=== PATIENT | female | born 1990 | race Caucasian/White ===

== ENCOUNTER 2019-09-23 07:58 | Emergency (ER) | payer OTHER ==
--- NOTE | 2019-09-23 08:52 | ED Physician Documentation ---
PD HPI HEADACHE - Stated complaint Stated Complaint: PRICE/VOMITING - Chief complaint Chief Complaint: General - History obtained from History obtained from: Patient - History of Present Illness Timing - onset: Last night Timing - onset during: Rest Timing - duration: Hours Timing - details: Gradual onset, Still present Worst headache ever?: No: Worst headache ever? (similar to other migraines.) Location: Front, Right Quality: Throbbing, Aching Associated symptoms: Nausea, Vomiting. No: Fever, Stiff neck, Weakness, Numbness Improved by: No: Meds (took tylenol without improvement) Worsened by: Light, Noise Contributing factors: No: Recent illness Similar symptoms before: Diagnosis (migraines about every 2 months. Usually t akes Excedrin migraine or Ibuprofen, but is now and had been told only can use Tylenol. Has not been Rx migraine specific meds such as Imitrex in the past.) Review of Systems Constitutional: denies: Fever, Chills, Myalgias Nose: denies: Rhinorrhea / runny nose, Congestion Throat: denies: Sore throat Respiratory: denies: Cough GI: reports: Nausea, Vomiting. denies: Abdominal Pain, Diarrhea Skin: denies: Rash, Lesions Neurologic: reports: Headache. denies: Focal weakness, Numbness, Near syncope, Confused, Altered mental status, Head injury PD PAST MEDICAL HISTORY - Past Medical History Cardiovascular: None Respiratory: None Neuro: Migraines - Present Medications Home Medications: Ambulatory Orders Medication Instructions Recorded Confirmed Ibuprofen [Motrin] 600 mg PO TID PRN #15 tab 09/23/19 Ondansetron Odt [Zofran] 4 mg TL Q6H PRN #15 tablet 09/23/19 - Allergies Allergies/Adverse Reactions: Allergies Allergy/AdvReac Type Severity Reaction Status Date / Time No Known Drug Allergies Allergy Verified 09/23/19 08:31 PD ED PE NORMAL - Vitals Vital signs reviewed: Yes - General General: Alert and oriented X 3, Well developed/nourished - HEENT HEENT: PERRL, EOMI, Pharynx benign - Neck Neck: Supple, no meningeal sign, No adenopathy - Cardiac Cardiac: RRR, No murmur - Respiratory Respiratory: Clear bilaterally - Derm Derm: Normal color, Warm and dry - Neuro Neuro: Alert and oriented X 3, No motor deficit, No sensory deficit, Normal speech Eye Opening: Spontaneous Motor: Obeys Commands Verbal: Oriented GCS Score: 15 Results - Vitals Vitals: Vital Signs - 24 hr 09/23/19 09/23/19 09/23/19 08:24 11:01 11:26 Temperature 36.2 C L 36.9 C Heart Rate 70 67 70 Respiratory 16 12 14 Rate Blood Pressure 111/62 101/59 L 110/64 O2 Saturation 99 96 96 Oxygen O2 Source Room air PD MEDICAL DECISION MAKING - ED course Complexity details: re-evaluated patient (feeling much improved with Toradol and Zofran. ), considered differential, d/w patient Departure - Departure Disposition: Home, Self Care Clinical Impression: Migraine Qualifiers: Migraine type: without aura Status migrainosus presence: without status migrainosus Intractability: not intractable Qualified Code(s): G43.009 - Migraine without aura, not intractable, without status migrainosus Condition: Stable Record reviewed to determine appropriate education?: Yes Instructions: ED Headache Migraine Follow-Up: SANAZ RODRIGUEZ III, MD [Primary Care Provider] - Prescriptions: Ibuprofen [Motrin] 600 mg PO TID PRN #15 tab PRN Reason: Pain Ondansetron Odt [Zofran] 4 mg TL Q6H PRN #15 tablet PRN Reason: Nausea / Vomiting Comments: Hydrate well today. Ondansetron if needed for nausea every 6-8 hours. You can use ibuprofen during up to about 30 weeks gestational age. Use it periodically if needed for headache. You can use Tylenol throughout all of . Discharge Date/Time: 09/23/19 11:27
[2019-09-23] MEDS ORDERED: KETOROLAC 60 MG/2 ML VIAL IM STA (09:15)
[2019-09-23] MEDS ORDERED: ONDANSETRON ODT 4 MG TABLET TL STA (09:15)
[2019-09-23 11:27] VITALS: BP 110/64
== END 2019-09-23 11:27 | disposition home or self-care (01) ==
LOC: ED 07:58
DX: G43.009 Migraine without aura, not intractable, without status migrainosus (principal)
CPT/HCPCS: 99283; 99284; Q0162

== ENCOUNTER 2019-11-30 08:33 | Outpatient (CLI) | payer OTHER ==
[2019-11-30] MEDS ORDERED: LACTATED RINGERS 1,000 ML IV ONE ×2 (10:27→10:39)
[2019-11-30] MEDS ORDERED: SODIUM CHLORIDE FLUSH 0.9% 10 ML SYRINGE ONE (10:27)
[2019-11-30 13:08] LABS: BILIRUBIN,URINE NEGATIVE (NEGATIVE); GLUCOSE, URINE (UA) NEGATIVE (NEGATIVE); KETONES,URINE (UA) NEGATIVE (NEGATIVE); LEUKOCYTE ESTERASE, URINE NEGATIVE (NEGATIVE); NITRITE,URINE NEGATIVE (NEGATIVE); OCCULT BLOOD,URINE NEGATIVE (NEGATIVE); PROTEIN,URINE NEGATIVE (NEGATIVE); UROBILINOGEN,URINE 0.2 (NORMAL) E.U./dL (NORMAL)
[2019-11-30 13:09] LABS: CLARITY,URINE CLEAR (CLEAR)
--- NOTE | 2019-11-30 13:24 | Ultrasound Report ---
Reason: ctx Procedure Date: 11/30/2019 Accession Number: [id number] / [id number] Procedure: US - OB Transvaginal CPT Code: Final Report FULL RESULT: EXAM: LIMITED OBSTETRICAL ULTRASOUND EXAM DATE: 11/30/2019 12:00 PM. CLINICAL HISTORY: ctx. COMPARISON: No prior studies available for comparison.. TECHNIQUE: Real-time sonographic evaluation of the fetus performed by the crossing guard. Multiple medical field representative static images were saved for review. DATING: Established EGA 26 weeks, 6 days with MARCIAL 03/01/2020. GENERAL EVALUATION [place] . Cardiac activity: 121 bpm. ANATOMY Not evaluated MATERNAL STRUCTURES The cervix is long and closed measuring 4.4 cm in length. IMPRESSION: 1. [place] live intrauterine with heart rate of 121 bpm. 2. Cervix is long and closed measuring 4.4 cm in length. 3. presentation and anatomy was not evaluated by the cardiology technologist. HAYLEEA
[2019-11-30 13:25] LABS: BACTERIA,URINE None Seen /HPF (None Seen); MUCUS,URINE Few Strands; RBC,URINE None Seen /HPF (0-5); SQUAMOUS EPITHELIAL CELL,UR MOD Squamous (<= Few)
[2019-11-30 13:25] LABS: CANDIDA GROUP DNA NEGATIVE (NEGATIVE); CANDIDA KRUSEI DNA NEGATIVE (NEGATIVE); TRICHOMONAS VAGINALIS DNA NEGATIVE (NEGATIVE)
[2019-11-30 14:20] VITALS: BP 120/74
[2019-11-30 21:41] LABS: TRICHOMONAS VAGINALIS DNA NEGATIVE (NEGATIVE)
--- NOTE | 2019-12-02 17:22 | PROVIDER PROGRESS NOTE ---
- HPI Chief Complaint: Other ( @ 26+5 weeks gestation presents to triage c/o regular ctx 4-6 minutes apart x2 days and loss of mucous plug last week. States delay in seeking care due to childcare and issues. Denies LOF or VB, notes movement and states it is increased, with episodes of "sharp" movement she states is not what she is used to.) Current : Current EDU 03/01/20 Gestation 26 Weeks and 6 Days 5 Para 4 Vital Signs Temperature 97.7 F 11/30/19 08:52 Heart Rate 78 11/30/19 08:52 Respiratory Rate 18 11/30/19 08:52 Blood Pressure 117/57 L 11/30/19 08:52 O2 Saturation 100 11/30/19 08:52 Temperature 98.1 F 11/30/19 14:19 Heart Rate 75 11/30/19 14:19 Respiratory Rate 18 11/30/19 14:19 Blood Pressure 120/74 11/30/19 14:19 O2 Saturation 99 11/30/19 14:19 - Exam GEN: NAD CV: RR RESP: normal effort ABD: gravid, S&NT EFM - Procedures OB Procedure Performed: NST Diagnosis/Indication for NST: labor NST Procedure: 135 mod cathi 15x15 accels no decels TOCO: intermittent Cat I tracing Service Date of procedure: 11/30/19 Procedure Details: @ 26+5 wga with ctx Cervical exam: 1 external, closed intermally, long, high per RN exam Cat I tracing FFN negative TVCL 4.4 cm Neg vaginitis panel GBS pending Had been francisco javier on monitor with reassuring cervical exam, US, FFN Given IV fluif bolus and contractions diminished. Findings: Reassuring cervical exam, cervical length, FFN UA and vaginitis panel negative Contractions diminished with fluid bolus - Plan Plan: Discharge to home with warning signs reviewed GBS pending
== END 2019-11-30 14:15 | disposition home or self-care (01) ==
LOC: WFO 08:33 → FBP 08:41 → WFO 14:15
PROVIDERS: ATTEND Obstetrics & Gynecology
DX: O47.02 False labor before 37 completed weeks of gestation, second trimester (principal); Z3A.26 26 weeks gestation of pregnancy
CPT/HCPCS: 76817; 81001; 82731; 87077; 87081; 87481; 87491; 87591; 87661; 87801; 99214; J7120; 87086

== ENCOUNTER 2019-12-01 08:00 | Outpatient (CLI) | payer OTHER ==
[2019-12-01 15:03] LABS: BILIRUBIN,URINE NEGATIVE (NEGATIVE); GLUCOSE, URINE (UA) NEGATIVE (NEGATIVE); KETONES,URINE (UA) NEGATIVE (NEGATIVE); LEUKOCYTE ESTERASE, URINE NEGATIVE (NEGATIVE); NITRITE,URINE NEGATIVE (NEGATIVE); OCCULT BLOOD,URINE NEGATIVE (NEGATIVE); PROTEIN,URINE NEGATIVE (NEGATIVE); UROBILINOGEN,URINE 0.2 (NORMAL) E.U./dL (NORMAL)
[2019-12-01 15:24] LABS: CLARITY,URINE CLOUDY (CLEAR); RBC,URINE None Seen /HPF (0-5); SQUAMOUS EPITHELIAL CELL,UR NONE SEEN (<= Few)
[2019-12-01 15:25] LABS: AMORPHOUS SEDIMENT,UR Moderate /LPF; BACTERIA,URINE None Seen /HPF (None Seen)
== END 2019-12-01 23:59 | disposition home or self-care (01) ==
LOC: LAB.R 08:00
PROVIDERS: ATTEND Nurse Practitioner Obstetrics & Gynecology
DX: Z36.89 Encounter for other specified antenatal screening (principal)
CPT/HCPCS: 81001; 87086

== ENCOUNTER 2019-12-09 09:17 | Outpatient (CLI) | payer OTHER ==
[2019-12-09 11:16] LABS: BASOPHILS % (AUTO) 0.4 %; EOSINOPHILS # (AUTO) 0.1 10^3/uL (0.0-0.7); EOSINOPHILS % (AUTO) 1.3 %; LYMPHOCYTES # (AUTO) 1.5 10^3/uL (1.5-3.5); LYMPHOCYTES % (AUTO) 13.5 %; MEAN CORPUSCULAR HEMOGLOBIN 28.7 pg (27.0-31.0); MEAN CORPUSCULAR HGB CONC 31.6 g/dL (32.0-36.0); MEAN CORPUSCULAR VOLUME 90.9 fL (81.0-99.0); MEAN PLATELET VOLUME 8.5 fL (7.9-10.8); MONOCYTES # (AUTO) 0.5 10^3/uL (0.0-1.0); MONOCYTES % (AUTO) 4.4 %; NEUTROPHILS # (AUTO) 8.6 10^3/uL (1.5-6.6); NEUTROPHILS % (AUTO) 79.7 %; PLT - PLATELET COUNT 367 10^3/uL (130-450); RED BLOOD COUNT 3.83 10^6/uL (4.20-5.40); RED CELL DISTRIBUTION WIDTH 12.7 % (12.0-15.0); WHITE BLOOD COUNT 10.8 x10^3/uL (4.8-10.8)
[2019-12-10 07:53] LABS: HEPATITIS B SURFACE ANTIGEN NON-REACTIVE (NON-REACTIVE)
[2019-12-10 12:07] LABS: HEPATITIS C ANTIBODY NON-REACTIVE (NON-REACTIVE)
[2019-12-10 13:24] LABS: HIV AG/AB 4TH GEN NON-REACTIVE (NON-REACTIVE)
== END 2019-12-09 09:18 | disposition home or self-care (01) ==
LOC: LAB 09:17
PROVIDERS: ATTEND Nurse Practitioner Obstetrics & Gynecology
DX: Z36.89 Encounter for other specified antenatal screening (principal)
CPT/HCPCS: 36415; 81599; 82950; 85025; 85027; 86762; 86803; 86850; 86900; 86901; 87340; 87389

== ENCOUNTER 2019-12-14 11:30 | Outpatient (CLI) | payer OTHER ==
--- NOTE | 2019-12-16 10:41 | Ultrasound Report ---
Reason: SCREENING Procedure Date: 12/14/2019 Accession Number: [id number] / [id number] Procedure: US - OB Detailed Eval CPT Code: Final Report FULL RESULT: EXAM: COMPLETE OBSTETRICAL ULTRASOUND EXAM DATE: 12/14/2019 11:42 AM. CLINICAL HISTORY: anatomic survey. LMP: 05/28/2019 COMPARISON: Limited OB TRANSVAGINAL 11/30/2019 11:40 AM. TECHNIQUE: Real-time sonographic evaluation of the fetus performed by the folding machine operator. Multiple member service representative static images were saved for review. Additional transvaginal imaging to more accurately evaluate cervical length/placental position/etc. DATING: Established EGA 28 weeks 6 days with MARCIAL 03/01/2020 based on provider stated. EGA 29 weeks 1 day with MARCIAL 02/28/2020 based on the current ultrasound. GENERAL EVALUATION [place] . Cardiac activity: 157 bpm. movement: Visualized. Presentation: Cephalic. Placenta: Posterior and right position. No evidence for previa. Umbilical cord: 3 vessel cord. Central placental cord origin. Amniotic fluid: Normal. KATHRINE 13.0 cm MVP 4.9 cm. BIOMETRY Bi-Parietal Diameter (BPD): 7.2 cm, 29 weeks 0 days Head Circumference (HC): 26.9 cm, 29 weeks 3 days Abdominal Circumference (AC): 25.0 cm, 29 weeks 1 day Femur Length (FL): 5.5 cm, 29 weeks 0 days Estimated Weight: 1338 g, 46th percentile for 28 weeks 6 days. ANATOMY The intracranial structures, profile, face/nose/lips, spine, 4 chamber heart and left ventricular outflow tract, stomach, abdominal wall and cord insertion, diaphragm, kidneys, bladder, and extremities were visualized and demonstrate no abnormality. Right ventricular outflow tract not well seen. MATERNAL STRUCTURES Uterus: Unremarkable. Cervix: Long and closed. Transabdominal length 4.8 cm. Right ovary/adnexa: Unremarkable. Left ovary/adnexa: Unremarkable. Free fluid: None. IMPRESSION: 1. [place] live intrauterine with gestational age 28 weeks 6 days based on provider stated established MARCIAL. 2. Estimated weight is within expected limits for assigned dating. 3. No anatomic abnormalities are detected at this time. However, the right ventricular outflow tract is not well seen. Follow-up additional views could be obtained to reassess. MICHAEL
== END 2019-12-14 11:31 | disposition home or self-care (01) ==
LOC: DI 11:30
PROVIDERS: ATTEND Nurse Practitioner Obstetrics & Gynecology
DX: Z36.89 Encounter for other specified antenatal screening (principal)
CPT/HCPCS: 76811

== ENCOUNTER 2019-12-24 12:43 | Outpatient (CLI) | payer OTHER ==
--- NOTE | 2019-12-24 14:58 | Ultrasound Report ---
Reason: SCREENING Procedure Date: 12/24/2019 Accession Number: [id number] / [id number] Procedure: US - OB F/U or Repeat CPT Code: Final Report FULL RESULT: EXAM: FOLLOW-UP OBSTETRICAL ULTRASOUND. EXAM DATE: 12/24/2019 02:02 PM. CLINICAL HISTORY: Completion of anatomy scan. Right ventricle outflow tract. COMPARISON: OB DETAILED EVAL 12/14/2019 11:42 AM. TECHNIQUE: Real-time sonographic evaluation of the fetus performed by the fabric designer. Multiple policy services representative static images were saved for review. DATING: Established EGA 30 weeks 2 days with MARCIAL 03/01/2020 based on working due date. GENERAL EVALUATION [place] . Cardiac activity: 136 bpm. movement: Visualized. Presentation: Meng breech. Placenta: Posterior position. Amniotic fluid: Normal. KATHRINE 15.1 cm. MVP 4.9 cm. ANATOMY The right ventricular outflow tract is seen, visualization is somewhat limited but adequate with no abnormality detected as seen. IMPRESSION: 1. [place] live intrauterine with gestational age 30 weeks 2 days based on working due date. 2. Limited but adequate visualization of the right ventricular outflow tract with no abnormality detected. RADIA
== END 2019-12-24 12:44 | disposition home or self-care (01) ==
LOC: DI 12:43
PROVIDERS: ATTEND Nurse Practitioner Obstetrics & Gynecology
DX: Z36.89 Encounter for other specified antenatal screening (principal)
CPT/HCPCS: 76816

== ENCOUNTER 2019-12-29 07:26 | Outpatient (CLI) | payer OTHER | END 2019-12-29 07:27 | disposition home or self-care (01) | LOC: LAB 07:26 | PROVIDERS: ATTEND Nurse Practitioner Obstetrics & Gynecology | DX: O99.810 Abnormal glucose complicating pregnancy (principal); Z3A.00 Weeks of gestation of pregnancy not specified | CPT/HCPCS: 36415; 82951; 82952 ==

== ENCOUNTER 2020-02-22 08:00 | Outpatient (CLI) | payer OTHER ==
[2020-02-22 21:05] LABS: TRICHOMONAS VAGINALIS DNA NEGATIVE (NEGATIVE)
== END 2020-02-22 23:59 | disposition home or self-care (01) ==
LOC: LAB.R 08:00
PROVIDERS: ATTEND Advanced Practice Midwife
DX: Z34.90 Encounter for supervision of normal pregnancy, unspecified, unspecified trimester (principal)
CPT/HCPCS: 87491; 87591; 87661

== ENCOUNTER 2020-02-29 07:00 | Outpatient (CLI) | payer OTHER | END 2020-02-29 23:59 | disposition home or self-care (01) | LOC: LAB.R 07:00 | PROVIDERS: ATTEND Advanced Practice Midwife | DX: Z34.90 Encounter for supervision of normal pregnancy, unspecified, unspecified trimester (principal); Z36.89 Encounter for other specified antenatal screening | CPT/HCPCS: 87797 ==

== ENCOUNTER 2020-03-01 06:26 | Inpatient (IN) | payer OTHER ==
[2020-03-01] MEDS ORDERED: METHYLERGONOVINE 0.2 MG/ML VIAL IM PRN (06:48)
[2020-03-01] MEDS ORDERED: miSOPROStoL 200 MCG TABLET PR PRN (06:48)
[2020-03-01] MEDS ORDERED: fentaNYL 100 MCG/2 ML VIAL IVP PRN (06:48)
[2020-03-01] MEDS ORDERED: SODIUM CHLORIDE FLUSH 0.9% 10 ML SYRINGE IVP PRN (06:48)
[2020-03-01] MEDS ORDERED: CARBOPROST TROMETHAMINE 250 MCG/ML AMP IM PRN (06:48)
[2020-03-01] MEDS ORDERED: OXYTOCIN/SODIUM CHLORIDE 500 ML IV PRN (06:48)
[2020-03-01] MEDS ORDERED: miSOPROStoL 200 MCG TABLET PR SCH (06:48)
[2020-03-01] MEDS ORDERED: ONDANSETRON 4 MG/2 ML VIAL IVP PRN ×2 (06:48→18:18)
[2020-03-01] MEDS ORDERED: LACTATED RINGERS 1,000 ML IV SCH (07:00)
--- NOTE | 2020-03-01 07:03 | HISTORY & PHYSICAL EXAMINATION ---
Admit History - Visit Reason Visit Reason: Other (Pre-Induction Cervical Ripening) - : 5 Parity: 4 Premature: 0 Ectopic: 0 : 0 Care: positive: [facility] Complications This : positive: Gestational diabetes, Other (Inadequate care; GBS Positive) Smoking Status: Never smoker - Mother's Labs Mother's Blood Type: positive: O Mother's RH: positive: Positive GBS: positive: Group B Strep Positive Rubella Status: positive: Immune - Other Maternal History Other Maternal History: Family History: None listed Surgical History: None listed Social History: No contributing factors known Inadequate care G1: 2009 41wks G2: 2010 40.5wks G3: 2012 39.6wks G4: Current DATING: Initial U/S: @ 12.1wks c/w LMP dating. MARCIAL 03/01/20 FAS 12/14/2019 WNL with the exception of poor visualization of cardiac structures. Posterior placenta, no previa. KATHRINE WNL. Size c/w dating. Glucola: 163- failed. 3hour(unable to complete r/t nausea/vomiting), declined further testing TDAP- Given 12/01/2019 Meds/Allgy - Home Medications Home Medications: Ambulatory Orders Medication Instructions Recorded Confirmed Ibuprofen [Motrin] 600 mg PO TID PRN #15 tab 09/23/19 Ondansetron Odt [Zofran] 4 mg TL Q6H PRN #15 tablet 09/23/19 - Allergies Allergies/Adverse Reactions: Allergies Allergy/AdvReac Type Severity Reaction Status Date / Time No Known Drug Allergies Allergy Verified 09/23/19 08:31 Review of Systems - Constitutional Constitutional: denies: Fatigue, Fever, Chills, Weakness - Eyes Eyes: denies: Pain, Irritation, Blurred vision, Spots in vision - Ears, Nose & Throat Ears, Nose & Throat: denies: Hearing loss, Vertigo, Nasal pain, Nosebleeds, Nasal congestion, Postnasal drainage - Cardiovascular Cariovascular: denies: Irregular heart rate, Palpitations, Chest pain - Respiratory Respiratory: denies: Cough, Wheezing, SOB at rest, SOB with exertion - Gastrointestinal Gastrointestinal: reports: Nausea, Vomiting. denies: Abdominal pain, Constipation, Diarrhea - Genitourinary Genitourinary: denies: Dysuria, Frequency - Musculoskeletal Musculoskeletal: denies: Muscle pain, Back pain, Muscle aches - Integumentary Integumentary: denies: Rash, Pruritis - Neurological Neurological: denies: Headache, Dizziness, Numbness - Psychiatric Psychiatric: reports: Anxiety (baseline history of anx). denies: Depression - Endocrine Endocrine: denies: Polyuria, Polydypsia - Hematologic/Lymphatic Hematologic/Lymphatic: denies: Anemia, Bruising Physical - Abdominal Exam Contraction Frequency (min/apart): intermittent Contraction Intensity: positive: Mild to moderate Uterine Resting Tone: positive: Soft - Presentation Presentation: positive: Vertex - Vaginal Exam Membranes: positive: Membranes intact Dilation (in cm): 1.5 Effacement (%): 75 Station: positive: -2 Cervical Position: positive: Midposition - Speculum Exam Speculum Exam Performed: positive: No (Exam per office visit yesterday. Confirmed vertex with scotty's at bedside today.) Plan for Labor - Plan For Labor I expect patient to be DC'd or transferred within 96 hours.: Yes Plan for Labor: Ania is a 29yo who presents at 40.0 wks gestation for an elective induction. Her is complicated by inadequate care, attending only four visits. She is GBS positive per a swab in November She is assumed GDM due to failed 1hr GTT, and inability to complete 3hr GTT r/t nausea and vomiting. Assessment: Pre-Induction Cervical Ripening Gestational Diabetes- presumed FHTs per RN SVE: Almaraz score- 7 Plan: Admit to OBS status for Pre-Induction Cervical Ripening (until active labor, SROM/AROM, or pit admin) Cervical ripening with Misoprostol- when RN confirms Cat I strip Continuous Monitoring Ampicillin ordered for GBS prophylaxis Blood sugars fasting and 2h post prandial Type and Screen May eat/drink/activity to tolerance Anticipate
[2020-03-01 07:42] LABS: BASOPHILS % (AUTO) 0.4 %; EOSINOPHILS # (AUTO) 0.2 10^3/uL (0.0-0.7); HGB - HEMOGLOBIN 10.2 g/dL (12.0-16.0); LYMPHOCYTES # (AUTO) 2.2 10^3/uL (1.5-3.5); LYMPHOCYTES % (AUTO) 20.9 %; MEAN CORPUSCULAR HEMOGLOBIN 25.8 pg (27.0-31.0); MEAN CORPUSCULAR HGB CONC 31.3 g/dL (32.0-36.0); MEAN CORPUSCULAR VOLUME 82.3 fL (81.0-99.0); MEAN PLATELET VOLUME 8.9 fL (7.9-10.8); MONOCYTES # (AUTO) 0.7 10^3/uL (0.0-1.0); MONOCYTES % (AUTO) 7.1 %; NEUTROPHILS # (AUTO) 7.1 10^3/uL (1.5-6.6); NEUTROPHILS % (AUTO) 68.6 %; PLT - PLATELET COUNT 388 10^3/uL (130-450); RED BLOOD COUNT 3.96 10^6/uL (4.20-5.40); WHITE BLOOD COUNT 10.4 x10^3/uL (4.8-10.8)
[2020-03-01] MEDS ORDERED: miSOPROStoL 100 MCG TABLET BC SCH (08:00)
[2020-03-01] MEDS ORDERED: SODIUM CHLORIDE FLUSH 0.9% 10 ML SYRINGE IVP SCH (09:00)
[2020-03-01] MEDS ORDERED: AMPICILLIN 2 GM in SODIUM CHLORIDE 0.9% MINIBAG 100 ML IV SCH (12:00)
--- NOTE | 2020-03-01 12:40 | PROVIDER PROGRESS NOTE ---
Labor Progress Note - Uterine Monitoring Contraction Frequency (min/apart): Q 6 min Contraction Intensity: positive: Mild to moderate - Monitoring Monitor Mode: positive: External ultrasound Heart Rate Baseline: 135 Heart Rate Variability: positive: Moderate (6-25 bmp) Accelerations: positive: Present, 15x15 Decelerations: positive: None Strip Review: positive: Category I - Vaginal Exam Dilation (in cm): 1 Effacement (%): 70 Station: -2 - Labor Progress Note Labor Progress Note/Additional Text: Patient managed by RONEN Pop Rounded to introduce myself as back up OB MD provider Exam performed in clinic-not repeated at this assessment Has received one dose of misoprostol 50 mcg BC Patient doing well in early stages of cervical ripening Cat I tracing Defer to RONEN Pop for care plan
[2020-03-01] MEDS ORDERED: AMPICILLIN 1 GM in SODIUM CHLORIDE 0.9% MINIBAG 100 ML IV SCH (16:00)
[2020-03-01] MEDS ORDERED: MINERAL OIL LIGHT 10 ML MC ONE (17:37)
[2020-03-01] MEDS ORDERED: ROPIVACAINE 0.2% 200 MG/100 ML BAG EP ONE (17:50)
[2020-03-01] MEDS ORDERED: ROPIVACAINE 0.2% PF 20ML VIAL ONE (17:50)
[2020-03-01] MEDS ORDERED: NALBUPHINE 10 MG/ML AMP IVP PRN (18:18)
[2020-03-01] MEDS ORDERED: METOCLOPRAMIDE 10 MG/2 ML VIAL IVP PRN (18:18)
[2020-03-01] MEDS ORDERED: ePHEDrine 50 MG/ML VIAL IVP PRN (18:18)
[2020-03-01] MEDS ORDERED: ROPIVACAINE 0.2% 200 MG/100 ML BAG EP PRN (18:18)
[2020-03-01] MEDS ORDERED: diphenhydrAMINE INJ 50 MG/ML VIAL IVP PRN (18:18)
[2020-03-01] MEDS ORDERED: LACTATED RINGERS 500 ML IV ONE (18:18)
[2020-03-01] MEDS ORDERED: NALOXONE 0.4 MG/ML VIAL IVP PRN (18:18)
--- NOTE | 2020-03-01 18:18 | ANESTHESIA ---
Pre-Anesthesia VS, & Labs - Diagnosis term labor, IUP - Procedure Vaginal delivery Vital Signs: Temp Pulse Resp BP Pulse Ox 37.0 C 85 16 104/66 100 03/01/20 06:52 03/01/20 06:52 03/01/20 06:52 03/01/20 06:52 03/01/20 06:52 Height 5 ft 4 in Weight (kg) 90.265 kg Body Mass Index 29.2 - NPO Last Fluid Intake: clears t/o day Last Food Intake: lunch - Is Patient ?: Yes - Lab Results Current Lab Results: Laboratory Tests 03/01/20 13:57: POC Whole Bld Glucose 95 03/01/20 11:05: POC Whole Bld Glucose 83 03/01/20 10:28: POC Whole Bld Glucose 69 L 03/01/20 07:55: POC Whole Bld Glucose 90 03/01/20 07:15: Blood Type O POSITIVE, Antibody Screen NEGATIVE 03/01/20 07:15: Glucose 137 H 03/01/20 07:15: WBC 10.4, RBC 3.96 L, Hgb 10.2 L, Hct 32.6 L, MCV 82.3, MCH 25.8 L, MCHC 31.3 L, RDW 15.0, Plt Count 388, MPV 8.9, Neut # (Auto) 7.1 H, Lymph # (Auto) 2.2, [place] # (Auto) 0.7, Eos # (Auto) 0.2, Baso # (Auto) 0.0, Absolute Nucleated RBC 0.00, Nucleated RBC % 0.0 Lab results reviewed: Yes Fish Bones: 03/01/20 07:15 03/01/20 07:15 Home Medications and Allergies Active Medications Acetaminophen (Tylenol) 650 mg PO Q6H PRN PRN Reason: Pain or Fever Carboprost Tromethamine (Hemabate) 250 mcg IM ONCE PRN PRN Reason: Post- Hemorrhage Stop: 03/04/20 06:47 Fentanyl (Fentanyl) 50 mcg IVP Q1H PRN PRN Reason: PAIN Ampicillin Sodium 1 gm/ Sodium (Chloride) 100 mls @ 200 mls/hr IV Q4H JEFF Last Infusion: 03/01/20 16:35 Dose: Infused Lactated Ringer's (Lr) 1,000 mls @ 100 mls/hr IV .Q10H [facility] Last Infusion: 03/01/20 14:30 Dose: Infused Oxytocin/Sodium Chloride (Pitocin/Sodium Chloride) 500 mls @ 999 mls/hr IV PRN PRN; Protocol PRN Reason: POST- HEMORR PREVENTION Methylergonovine Maleate (Methergine Inj) 0.2 mg IM Q4HR PRN PRN Reason: Post- Hemorrhage Misoprostol (Cytotec) 800 mcg AK ONCE PRN PRN Reason: Post- Hemorrhage Stop: 03/04/20 06:47 Misoprostol (Cytotec) 50 mcg BC Q4H JEFF Last Admin: 03/01/20 09:28 Dose: 50 mcg Ondansetron HCl (Zofran Inj) 4 mg IVP Q4HR PRN PRN Reason: Nausea / Vomiting Sodium Chloride (Normal Saline Flush 0.9%) 10 ml IVP 0100,0900,1700 JEFF Sodium Chloride (Normal Saline Flush 0.9%) 10 ml IVP PRN PRN PRN Reason: NEEDED PER PROVIDER ORDERS Allergies/Adverse Reactions: Allergies Allergy/AdvReac Type Severity Reaction Status Date / Time No Known Drug Allergies Allergy Verified 09/23/19 08:31 Anes History & Medical History - Anesthetic History Anesthesia Complications: reports: No previous complications Family history of Anesthesia Complications: Denies Family history of Malignant Hyperthermia: Denies - Medical History Cardiovascular: reports: None Pulmonary: reports: None Neuro: reports: Migraines Smoking Status: Never smoker - Obstetrical History : 5 Parity: 4 Complications: positive: Gestational diabetes, Other (Inadequate care; GBS Positive) Exam General: Alert, Oriented x3, Cooperative Dental: WNL Neck Mobility: Normal Mallampati classification: II Thyromental Distance: 4-6 cm Respiratory: Normal breath sounds Cardiovascular: Regular rate Neurological: Normal speech Mental/Cognitive Status: Alert/Oriented X3, Normal for patient Cognitive Status: Within normal limits Plan Anesthesia Type: Epidural Consent for Procedure(s) Verified and Reviewed: Yes Code Status: Attempt Resuscitation ASA classification: 2-Mild systemic disease Is this case an emergency?: No
[2020-03-01] MEDS ORDERED: LIDOCAINE-MPF 1% 30 ML VIAL ONE (19:13)
[2020-03-01] MEDS ORDERED: WITCH HAZEL/GLYCERIN 1 PAD TOP PRN (19:37)
--- NOTE | 2020-03-01 19:48 | DELIVERY NOTE ---
Delivery Note - Labor Labor: positive: Augmented by ARM - Infant Delivery Method Delivery Method: positive: Spontaneous vaginal delivery - Cervical Ripening Method Cervical Ripening Method: positive: Misoprostil - Presentation Presentation: positive: Vertex, JOSE - right occiput anterior - Nuchal Cord Nuchal Cord: positive: None - Amniotic Fluid Description Amniotic Fluid Description: positive: Clear - Episiotomy Type Episiotomy Type: positive: None - Laceration Laceration: positive: None - Delivery Outcome Delivery Outcome: positive: Livebirth - [place]: positive: Placed in direct skin contact with mother, Bulb syringe, Stimulated, [place] used [place] sex: positive: Male : 9 : 9 - Cord Cord: positive: 3 vessels - Placenta Placenta: positive: Intact - Estimated Blood Loss Estimated Blood Loss (in cc): 250 - Post Delivery Events Post Delivery Events: positive: No post delivery events - Delivery Comments (Free Text/Narrative) Delivery Comments (Free Text/Narrative): Note: Labor: This 29 year old, , @40.0wks gestation by 12.1 week Ultrasound, confirmed by LMP, presented @ 0630 for elective IOL vvia pre-induction cervical ripening. Cervix was 1.5/80/-2 and vertex. FHR pattern demonstrated a Category I pattern. Normal labor course. Epidural placed upon maternal request. AROM for moderate amount of clear fluid @1850. She quickly progressed to complete and pushing at 1853. : Normal of a male on 03/01/2020 @ 1913. Nuchal not present. The was placed on maternal abdomen, stimulated, dried and placed skin to skin. Apgars 9 at one minute and 9 at five minutes. The umbilical cord was allowed to stop pulsating at which time it was doubly clamped by CNM and cut by FOB. Pitocin administered via IV for hemostasis. Fundal massage and gentle cord traction applied for active third stage management. Cord blood was obtained. Placenta delivered spontaneously and intact at 1918. Three vessel cord. EBL 250mL. Fourth Stage: Uterine fundus firm and without excessive bleeding. The perineum, vagina, and cervix were inspected and found to be intact. Vaginal and rectal examination following repair was done. Tissues well approximated. initiated. Family bonding well. Both mother and baby are in stable condition.
[2020-03-01] MEDS: ACETAMINOPHEN 325 MG TABLET PO PRN (20:41)
[2020-03-01] MEDS: DOCUSATE SODIUM 100 MG CAPSULE PO SCH (20:42)
[2020-03-01] MEDS: IBUPROFEN 600 MG TABLET PO PRN (20:42)
[2020-03-02] MEDS: ACETAMINOPHEN 325 MG TABLET PO PRN ×3 (03:33→16:04)
[2020-03-02] MEDS: IBUPROFEN 600 MG TABLET PO PRN ×3 (03:33→16:04)
[2020-03-02] MEDS ORDERED: SERTRALINE 50 MG TABLET PO SCH (09:00)
[2020-03-02] MEDS: DOCUSATE SODIUM 100 MG CAPSULE PO SCH (09:46)
--- NOTE | 2020-03-02 16:26 | PROVIDER PROGRESS NOTE ---
Subjective - Prog Note Date Prog Note Date: 03/02/20 Prog Note Time: 16:24 - Subjective Pt reports feeling: Improved Subjective: Final Progress Note S: Bonding well. without difficulty. Pain well controlled with PO Meds. O: Fundus firm, Lochia wnl A: 29yo s/p 03/01/2020 GDM Anxiety GBS- adequately treated P: Continue routine care and meds Evaluate for discharge home today Continue OTC meds for pain management (acetaminophen and ibuprofen) and colace (Rx requested by patient) Objective - Vital Signs/Intake & Output Vital Signs: Vital Signs x48h Temp Pulse Resp BP Pulse Ox 03/02/20 12:30 37.1 C 53 L 16 105/69 100 03/02/20 08:51 36.5 C 70 18 103/62 98 Intake & Output: Intake & Output 02/28/20 02/29/20 03/01/20 03/02/20 23:59 23:59 23:59 23:59 Intake Total 1200 Balance 1200 - Lab Results Fish Bones: 03/01/20 07:15 03/01/20 07:15
--- NOTE | 2020-03-02 16:31 | Discharge Plan ---
Discharge Plan Problem Reviewed?: Yes Disposition: Home, Self Care Condition: Good Diet: Regular Activity Restrictions: No Restrictions Shower Restrictions: No Driving Restrictions: No Additional Instructions or Follow Up instructions: Follow up at one week, three weeks, and six weeks No Smoking: If you smoke, Please STOP! Call for help. Follow-up with: Lennie Pop ARNP [Provider Admit Priv/Credential] -
--- NOTE | 2020-03-02 16:46 | DISCHARGE SUMMARY ---
Discharge Summary Condition at Discharge: Good Discharge Disposition: 01 Home, Self Care - HPI History of Present Illness: Date of Admission 03/01/2020 Date of Discharge 03/02/2020 Diagnosis on Admission: 1. A 29yo at 40.0 week intrauterine 2. Elective induction of labor with pre-induction cervical ripening 3. Gestational Diabetes 4. GBS positive 5. Inadequate care Diagnosis on Discharge 1. A 29yo s/p spontaneous vaginal delivery on 03/01/2020 2. Normal Recovery 3. Adequate GBS Coverage Brief History: She is a patient at [facility] who presented on 03/01/2020 for elective induction of labor with pre-induction cervical ripening using one dose of misoprostol. Exam on admit was 1.5/80/-2. She spontaneously delivered a viable male infant named Mac. Apgars were 9 and 9- and 1 and 5 minutes respectively. EBL 250mL. The patient's perineum was found to be intact. Placenta delivered intact with without complication. She has been doing well in her course. She is ambulating and tolerating a regular diet. She is urinating without difficulty and her lochia is normal. Her pain is well controlled with oral medications. She will be discharged home today on day #1 with prescriptions for ibuprofen, acetaminophen, and colace. She intends to follow up with myself at [facility] in 1 and 3 weeks for routine visit. She has been given precautions to call if she has any worsening fevers, chills, abdominal pain, increased bleeding or foul smelling vaginal lochia. - ALLERGIES Allergies/Adverse Reactions: Allergies Allergy/AdvReac Type Severity Reaction Status Date / Time No Known Drug Allergies Allergy Verified 09/23/19 08:31 - MEDICATIONS Home Medications: Ambulatory Orders Medication Instructions Recorded Confirmed Ibuprofen [Motrin] 600 mg PO TID PRN #15 tab 09/23/19 Ondansetron Odt [Zofran] 4 mg TL Q6H PRN #15 tablet 09/23/19 - LABS Result Diagrams: 03/01/20 07:15 03/01/20 07:15
[2020-03-02 17:15] VITALS: BP 108/61
--- NOTE | 2020-03-02 21:02 | Labor Flowsheet ---
Labor Flowsheet Datetime Report Generated by CPN: 03/02/2020 21:02 Datetime: 03/01/2020 21:31 VITAL SIGNS NBP Sys/Mariah/Mean (mmHg): 86 : 44 : 52 Pulse: 88 Datetime: 03/01/2020 21:30 SpO2 (%): 98 Datetime: 03/01/2020 21:05 PAIN Pain Scale: 2 Pain Presence: Constant Pain Type: Ache Pain Location: Perineum Datetime: 03/01/2020 20:34 Respirations: 18 Datetime: 03/01/2020 20:05 Epidural Procedure Other: Cath Removed Datetime: 03/01/2020 20:01 Stage of : Recovery Datetime: 03/01/2020 19:36 Membranes Ruptured Date/Time: 03/01/2020 18:50 Cervical Ripening Agents: Cytotec @ Datetime: 03/01/2020 19:30 Temperature (C): 37.3 Temperature Route: Oral Datetime: 03/01/2020 19:16 LaborFlag: Antepartum Datetime: 03/01/2020 19:00 UTERINE ACTIVITY Monitor Mode: External Monitor Interventions for UA: [place] Adjusted Frequency (min): 1-3 Quality: Strong Duration (sec): 40-90 Pattern: Normal: <= 5 Contractions in 10 Minutes Resting Tone (Palpate): Relaxed ASSESSMENT A Monitor Mode: External US Monitor Interventions for FHR: Ultrasound Adjusted FHR Baseline Rate : 135 Variability: Moderate 6-25 bpm Accelerations: None Decelerations: Early; Late; Variable Category: Category II Datetime: 03/01/2020 18:53 STAGE 2 Pushing: Urge to Push Pushing Position: Pushing with Contractions; Pushing Right Side Pushing Progress: Descent with Pushing Datetime: 03/01/2020 18:50 Membrane Status: Ruptured Membranes Rupture Method: Artificial Amniotic Fluid Color: Clear Amniotic Fluid Amount: Moderate Membrane Comments: AROM by RONEN [place] Datetime: 03/01/2020 18:45 VAGINAL EXAM Dilatation (cm): 10.0 Effacement (%): 100 Station: 0 Exam by: CNM Donn Datetime: 03/01/2020 18:30 I/O Interventions: Straight Cath (ml) @ 200 Datetime: 03/01/2020 18:15 Communication Comments: Lennie @ bedside Datetime: 03/01/2020 18:04 Epidural Procedure: Loading Dose Anesthesia Comments: remaining 1/2 loading dose given Datetime: 03/01/2020 17:53 PROCEDURE TIME OUT Procedure Verify: Correct Patient Position Epidural Positioning: Sitting Datetime: 03/01/2020 17:50 ANESTHESIA Anesthesia Plans: Epidural Datetime: 03/01/2020 17:30 FHR Baseline Changes: No Baseline Change Comments: [facility] with [facility] for US and toco adjustments. Datetime: 03/01/2020 17:20 Pain Coping: Requesting Pain Medication or Epidural Pain Assessment Comments: pt requesting epidural. COMMUNICATION Provider Notified (Name): SHOEMAKER CUSTOM Mercedes Datetime: 03/01/2020 17:05 Patient Care Comments: pt in jacuzzi tub Datetime: 03/01/2020 16:54 Cervix, Position: Midposition Datetime: 03/01/2020 16:30 Contraction Comments: RN @ bedside for frequent toco adjustments; not capturing most ctx. Ctx palp ate strong, q 2-3 minutes apart, lasting appx 60-80 seconds. Datetime: 03/01/2020 16:26 Pain Relief Measures: Comfort Measures Comfort Measures: Breathing/Relaxation; Family Support Datetime: 03/01/2020 16:00 MEDICATIONS Antibiotics: Ampicillin IV 1 Gm Datetime: 03/01/2020 15:14 PATIENT CARE Patient Position/Activity: Birthing Ball Datetime: 03/01/2020 13:41 Actions for Decelerations: IV Bolus Datetime: 03/01/2020 11:18 Notification Reason: Status Update Datetime: 03/01/2020 11:05 Bedside Blood Glucose: 83 Datetime: 03/01/2020 10:28 Vital Sign Comments: Peanut butter, shayy crackers _ apple juice given. Recheck in 30 minutes.
--- NOTE | 2020-03-02 21:09 | Labor Flowsheet ---
Labor Flowsheet Datetime Report Generated by CPN: 03/02/2020 21:09 Datetime: 03/01/2020 21:31 VITAL SIGNS NBP Sys/Mariah/Mean (mmHg): 86 : 44 : 52 Pulse: 88 Datetime: 03/01/2020 21:30 SpO2 (%): 98 Datetime: 03/01/2020 21:05 PAIN Pain Scale: 2 Pain Presence: Constant Pain Type: Ache Pain Location: Perineum Datetime: 03/01/2020 20:34 Respirations: 18 Datetime: 03/01/2020 20:05 Epidural Procedure Other: Cath Removed Datetime: 03/01/2020 20:01 Stage of : Recovery Datetime: 03/01/2020 19:36 Membranes Ruptured Date/Time: 03/01/2020 18:50 Cervical Ripening Agents: Cytotec @ Datetime: 03/01/2020 19:30 Temperature (C): 37.3 Temperature Route: Oral Datetime: 03/01/2020 19:16 LaborFlag: Antepartum Datetime: 03/01/2020 19:00 UTERINE ACTIVITY Monitor Mode: External Monitor Interventions for UA: [place] Adjusted Frequency (min): 1-3 Quality: Strong Duration (sec): 40-90 Pattern: Normal: <= 5 Contractions in 10 Minutes Resting Tone (Palpate): Relaxed ASSESSMENT A Monitor Mode: External US Monitor Interventions for FHR: Ultrasound Adjusted FHR Baseline Rate : 135 Variability: Moderate 6-25 bpm Accelerations: None Decelerations: Early; Late; Variable Category: Category II Datetime: 03/01/2020 18:53 STAGE 2 Pushing: Urge to Push Pushing Position: Pushing with Contractions; Pushing Right Side Pushing Progress: Descent with Pushing Datetime: 03/01/2020 18:50 Membrane Status: Ruptured Membranes Rupture Method: Artificial Amniotic Fluid Color: Clear Amniotic Fluid Amount: Moderate Membrane Comments: AROM by RONEN [place] Datetime: 03/01/2020 18:45 VAGINAL EXAM Dilatation (cm): 10.0 Effacement (%): 100 Station: 0 Exam by: CNM Donn Datetime: 03/01/2020 18:30 I/O Interventions: Straight Cath (ml) @ 200 Datetime: 03/01/2020 18:15 Communication Comments: Lennie @ bedside Datetime: 03/01/2020 18:04 Epidural Procedure: Loading Dose Anesthesia Comments: remaining 1/2 loading dose given Datetime: 03/01/2020 17:53 PROCEDURE TIME OUT Procedure Verify: Correct Patient Position Epidural Positioning: Sitting Datetime: 03/01/2020 17:50 ANESTHESIA Anesthesia Plans: Epidural Datetime: 03/01/2020 17:30 FHR Baseline Changes: No Baseline Change Comments: [facility] RN with patient for US and toco adjustments. Datetime: 03/01/2020 17:20 Pain Coping: Requesting Pain Medication or Epidural Pain Assessment Comments: pt requesting epidural. COMMUNICATION Provider Notified (Name): UNDERWRITING SERVICE REPRESENTATIVE Mercedes Datetime: 03/01/2020 17:05 Patient Care Comments: pt in jacuzzi tub Datetime: 03/01/2020 16:54 Cervix, Position: Midposition Datetime: 03/01/2020 16:30 Contraction Comments: RN @ bedside for frequent toco adjustments; not capturing most ctx. Ctx palp ate strong, q 2-3 minutes apart, lasting appx 60-80 seconds. Datetime: 03/01/2020 16:26 Pain Relief Measures: Comfort Measures Comfort Measures: Breathing/Relaxation; Family Support Datetime: 03/01/2020 16:00 MEDICATIONS Antibiotics: Ampicillin IV 1 Gm Datetime: 03/01/2020 15:14 PATIENT CARE Patient Position/Activity: Birthing Ball Datetime: 03/01/2020 13:41 Actions for Decelerations: IV Bolus Datetime: 03/01/2020 11:18 Notification Reason: Status Update Datetime: 03/01/2020 11:05 Bedside Blood Glucose: 83 Datetime: 03/01/2020 10:28 Vital Sign Comments: Peanut butter, shayy crackers _ apple juice given. Recheck in 30 minutes.
== END 2020-03-02 20:50 | disposition home or self-care (01) | DRG 807 ==
LOC: WFO 06:26 → FBP 06:30 → WFO 06:47 → FBP 06:48 → OBSVTOIN 19:33 → FBP 03-02 09:02
PROVIDERS: ADMIT Advanced Practice Midwife; ATTEND Advanced Practice Midwife
PROC: 10E0XZZ Delivery of Products of Conception, External Approach (ICD-10-PCS; principal; 2020-03-01)
PROC: 10907ZC Drainage of Amniotic Fluid, Therapeutic from Products of Conception, Via Natural or Artificial Opening (ICD-10-PCS; 2020-03-01)
DX: O24.419 Gestational diabetes mellitus in pregnancy, unspecified control (principal); Z37.0 Single live birth; Z3A.40 40 weeks gestation of pregnancy; O99.824 Streptococcus B carrier state complicating childbirth; O99.344 Other mental disorders complicating childbirth; F41.9 Anxiety disorder, unspecified; Z79.899 Other long term (current) drug therapy
CPT/HCPCS: 82947; 85025; 86850; 86900; 86901; A9270; J2795; J7120

== ENCOUNTER 2020-12-16 08:00 | Outpatient (CLI) | payer OTHER ==
[2020-12-16 17:46] LABS: BILIRUBIN,URINE NEGATIVE (NEGATIVE); GLUCOSE, URINE (UA) NEGATIVE (NEGATIVE); KETONES,URINE (UA) NEGATIVE (NEGATIVE); LEUKOCYTE ESTERASE, URINE NEGATIVE (NEGATIVE); NITRITE,URINE NEGATIVE (NEGATIVE); OCCULT BLOOD,URINE NEGATIVE (NEGATIVE); PH,URINE 6.5 PH (5.0-7.5); PROTEIN,URINE NEGATIVE (NEGATIVE); UROBILINOGEN,URINE 0.2 (NORMAL) E.U./dL (NORMAL)
[2020-12-16 17:49] LABS: BACTERIA,URINE None Seen /HPF (None Seen); CLARITY,URINE CLEAR (CLEAR); RBC,URINE 0-5 /HPF (0-5); SQUAMOUS EPITHELIAL CELL,UR MANY Squamous (<= Few)
== END 2020-12-16 23:59 | disposition home or self-care (01) ==
LOC: LAB.R 08:00
PROVIDERS: ATTEND Nurse Practitioner Obstetrics & Gynecology
DX: Z32.01 Encounter for pregnancy test, result positive (principal)
CPT/HCPCS: 81001; 87086

== ENCOUNTER 2020-12-28 15:07 | Outpatient (CLI) | payer OTHER ==
--- NOTE | 2020-12-28 16:35 | Ultrasound Report ---
PROCEDURE: OB First Trimester INDICATIONS: PREG TEST POSITIVE OUTSIDE/PRIOR DATING DATA: Last menstrual period (LMP): 10/02/2020. LMP-based estimated date of delivery (MARCIAL): 07/09/2021. First dating scan (date and location): 12/28/2020. Estimated date of delivery (MARCIAL) from first dating scan: 07/08/2021. TECHNIQUE: Real-time scanning was performed of the fetus and maternal pelvic organs, with image documentation. COMPARISON: None. FINDINGS: Embryo: Intrauterine is seen with crown-rump length measuring 6.2 cm, compatible with a ge stational age of 12 weeks 4 days. heart rate is 162 bpm. Irregular echogenicity adjacent to the gestational sac measuring 4.9 x 1.8 x 2.7 cm is suspicious for a perigestational sac hemorrhage. Measurement variability in dating: +/- 4 weeks by LMP, +/- 7 days by mean sac diameter (use before 6 weeks gestation if crown-rump length not able to be measured), +/- 5 days by crown-rump length (6-12 weeks gestation). Maternal organs: A right corpus luteum cyst is present. A simple cyst is seen in the left kidney. IMPRESSION: 1. Single live intrauterine with measurements compatible with a gestational age of 12 week s 4 days, giving an ultrasound MARCIAL of 07/08/2021. 2. Perigestational sac hemorrhage measures 4.9 x 1.8 x 2.7 cm. Reviewed by: Ramez Ricardo MD on 12/28/2020 4:34 PM PST Approved by: Ramez Ricardo MD on 12/28/2020 4:34 PM PST Station ID: [id number]
== END 2020-12-28 15:08 | disposition home or self-care (01) ==
LOC: DI 15:07
PROVIDERS: ATTEND Nurse Practitioner Obstetrics & Gynecology
DX: Z32.01 Encounter for pregnancy test, result positive (principal)

== ENCOUNTER 2021-01-11 13:56 | Outpatient (CLI) | payer OTHER ==
[2021-01-11 14:24] LABS: BASOPHILS % (AUTO) 0.3 %; EOSINOPHILS # (AUTO) 0.2 10^3/uL (0.0-0.7); EOSINOPHILS % (AUTO) 1.8 %; HCT - HEMATOCRIT 35.7 % (37.0-47.0); HGB - HEMOGLOBIN 11.7 g/dL (12.0-16.0); LYMPHOCYTES # (AUTO) 1.8 10^3/uL (1.5-3.5); LYMPHOCYTES % (AUTO) 15.2 %; MEAN CORPUSCULAR HEMOGLOBIN 28.3 pg (27.0-31.0); MEAN CORPUSCULAR HGB CONC 32.8 g/dL (32.0-36.0); MEAN CORPUSCULAR VOLUME 86.2 fL (81.0-99.0); MEAN PLATELET VOLUME 8.7 fL (7.9-10.8); MONOCYTES # (AUTO) 0.6 10^3/uL (0.0-1.0); MONOCYTES % (AUTO) 4.8 %; NEUTROPHILS # (AUTO) 8.9 10^3/uL (1.5-6.6); NEUTROPHILS % (AUTO) 77.5 %; PLT - PLATELET COUNT 342 10^3/uL (130-450); RED BLOOD COUNT 4.14 10^6/uL (4.20-5.40); WHITE BLOOD COUNT 11.5 x10^3/uL (4.8-10.8)
[2021-01-11 18:40] LABS: ESTIMATED AVERAGE GLUCOSE 100 mg/dL (70-100); HEMOGLOBIN A1c% 5.1 % (4.27-6.07)
[2021-01-12 11:06] LABS: HEPATITIS B SURFACE ANTIGEN NON-REACTIVE (NON-REACTIVE)
[2021-01-12 11:07] LABS: HEPATITIS C ANTIBODY NON-REACTIVE (NON-REACTIVE)
[2021-01-12 14:10] LABS: HIV AG/AB 4TH GEN NON-REACTIVE (NON-REACTIVE)
== END 2021-01-11 13:57 | disposition home or self-care (01) ==
LOC: LAB 13:56
PROVIDERS: ATTEND Nurse Practitioner Obstetrics & Gynecology
DX: Z32.01 Encounter for pregnancy test, result positive (principal)
CPT/HCPCS: 36415; 83036; 85025; 86592; 86762; 86787; 86803; 86850; 86900; 86901; 87340; 87389

== ENCOUNTER 2021-01-12 08:00 | Outpatient (CLI) | payer OTHER ==
[2021-01-12 22:02] LABS: CHLAMYDIA TRACHOMATIS DNA NEGATIVE (NEGATIVE); NEISSERIA GONORRHOEAE DNA NEGATIVE (NEGATIVE); TRICHOMONAS VAGINALIS DNA NEGATIVE (NEGATIVE)
== END 2021-01-12 23:59 | disposition home or self-care (01) ==
LOC: LAB.R 08:00
PROVIDERS: ATTEND Advanced Practice Midwife
DX: Z11.3 Encounter for screening for infections with a predominantly sexual mode of transmission (principal)
CPT/HCPCS: 87491; 87591; 87661

== ENCOUNTER 2021-02-21 12:32 | Outpatient (CLI) | payer OTHER ==
--- NOTE | 2021-02-24 10:07 | Ultrasound Report ---
PROCEDURE: OB Detailed Eval INDICATIONS: SCREENING OUTSIDE/PRIOR DATING DATA: Last menstrual period (LMP): 01/02/20. LMP-based estimated date of delivery (MARCIAL): 07/09/2021. First dating scan (date and location): 12/28/2020. Estimated date of delivery (MARCIAL) from first dating scan: 07/08/2021. MARCIAL by provider is 07/09/2021 and u sed for the below measurements. TECHNIQUE: Real-time scanning was performed of the fetus, with image documentation and biometric measurements. COMPARISON: OB ultrasound 12/08/2020 FINDINGS: General: A single living intrauterine gestation is present. Presentation: Breech Placenta: Placental position is posterior, without previa. Amniotic fluid index: 11.7 cm, within normal limits for gestational age. Largest pocket 3.8 heart rate: 140 beats per minute. Maternal cervical canal: 4.6 cm long; normal length is 2.5 cm or more. biometrics: Biparietal diameter: 4.3 cm 19 weeks 1 day Head circumference: 16.4 cm 19 weeks 1 day Abdominal circumference: 14.0 cm 19 weeks 3 days Femur length: 2.9 cm 18 weeks 5 days Estimated gestational age from initial scan: 20 weeks 2 days. Composite gestational age from present scan: 19 weeks 1 day Estimated weight and percentile: 274 g 4.5 percentile Measurement variability in biometric dating: +/- 10 days from 12-20 weeks gestation, +/- 2 weeks from 20-30 weeks gestation, +/- 3 weeks at 30 weeks gestation or later. Anatomic survey: Neuro: Ventricles are normal at less than 10 mm. Cisterna magna is normal at 3-11 mm. Cerebellum i s normal in size and morphology. Nuchal skin fold: Normal at less than 6 mm between 14 and 20 weeks gestational age. Face: Nose and lips, facial profile are normal. Spine: No evidence for spina bifida. Heart: 4-chambered heart is present, with normal ventricular outflow tracts. Diaphragm: Diaphragm is intact. Stomach: Left-sided stomach is present. Kidneys: No hydronephrosis. Normal is less than 5 mm in 2nd trimester, less than 7 mm in 3rd trimester. Cord: 3 vessel cord has orthotopic insertion. Bladder: Normal in size. Extremities: All 4 extremities are visualized. IMPRESSION: 1. Single live intrauterine . 2. Estimated weight is at the 4.5th percentile. Although it is noted that growth is highly vari able at this stage of gestation, intrauterine growth restriction cannot be excluded. Recommend short interval imaging follow-up for further evaluation of growth. Reviewed by: Melody Romeo MD on 02/24/2021 10:05 AM PDT Approved by: Melody Romeo MD on 02/24/2021 10:05 AM PDT Station ID: [id number]
== END 2021-02-21 12:33 | disposition home or self-care (01) ==
LOC: DI 12:32
PROVIDERS: ATTEND Advanced Practice Midwife
DX: Z34.00 Encounter for supervision of normal first pregnancy, unspecified trimester (principal); Z36.89 Encounter for other specified antenatal screening

== ENCOUNTER 2021-06-15 09:15 | Outpatient (CLI) | payer OTHER | END 2021-06-15 23:59 | disposition home or self-care (01) | LOC: LAB.WC 09:15 | PROVIDERS: ATTEND Advanced Practice Midwife | DX: Z36.85 Encounter for antenatal screening for Streptococcus B (principal) | CPT/HCPCS: 87797 ==

== ENCOUNTER 2021-07-01 12:14 | Outpatient (CLI) | payer OTHER ==
[2021-07-01 12:29] VITALS: BP 115/79
--- NOTE | 2021-07-01 15:55 | PROVIDER PROGRESS NOTE ---
- HPI Chief Complaint: Labor Check Current : Current EDU 07/09/21 Gestation 38 Weeks and 6 Days 6 Para 5 Vital Signs Heart Rate 99 07/01/21 12:28 Respiratory Rate 16 07/01/21 12:28 Blood Pressure 115/79 07/01/21 12:28 O2 Saturation 100 07/01/21 12:28 Temperature Heart Rate 99 07/01/21 12:28 Respiratory Rate 16 07/01/21 12:28 Blood Pressure 115/79 07/01/21 12:28 O2 Saturation 100 07/01/21 12:28 - Procedures OB Procedure Performed: NST NST Procedure: NST Procedure Start Date 07/01/21 Start Time 12:23 Stop Time 12:50 Vibroacoustic Stimulation Used No Patient States Movement Yes - Plan Plan: Ania presents today for rule out labor. She states she has had 3 contractions in the past 45 minutes and is tolerating them well. She denies vaginal bleeding or leakage of fluid. She reports +FM. NST performed 07/01/2021 NST read 07/01/2021 NST reactive. FHR baseline 135, moderate variability, + accels, no decels No contractions appreciated via tocometry which palpate mild with soft resting tone SVE fingertip/40/-3, posterior. Vertex. Intact membranes. Pt released home with precautions. She has emergency contact number. She denies further questions or concerns at this time. FINAL DIAGNOSIS: False labor >37wks gestation
== END 2021-07-01 13:00 | disposition home or self-care (01) ==
LOC: WFO 12:14 → FBP 12:15 → WFO 13:00
PROVIDERS: ATTEND Nurse Practitioner Obstetrics & Gynecology
DX: O47.1 False labor at or after 37 completed weeks of gestation (principal); Z3A.38 38 weeks gestation of pregnancy
CPT/HCPCS: 59025; 99213; 99214

== ENCOUNTER 2021-07-03 07:29 | Inpatient (IN) | payer OTHER ==
[2021-07-03] MEDS ORDERED: fentaNYL 100 MCG/2 ML VIAL IVP PRN (08:33)
[2021-07-03] MEDS ORDERED: OXYTOCIN/SODIUM CHLORIDE 500 ML IV PRN ×2 (08:33)
[2021-07-03] MEDS ORDERED: ONDANSETRON 4 MG/2 ML VIAL IVP PRN (08:33)
[2021-07-03] MEDS ORDERED: METOCLOPRAMIDE 10 MG/2 ML VIAL IVP PRN (08:33)
[2021-07-03] MEDS ORDERED: OXYTOCIN 10 UNIT/ML VIAL IM PRN (08:33)
[2021-07-03] MEDS ORDERED: miSOPROStoL 200 MCG TABLET BC PRN (08:33)
[2021-07-03] MEDS ORDERED: TRANEXAMIC ACID IN NACL 1,000 MG/100 ML BAG IV PRN (08:33)
[2021-07-03] MEDS ORDERED: ONDANSETRON ODT 4 MG TABLET TL PRN (08:33)
[2021-07-03] MEDS ORDERED: SODIUM CHLORIDE FLUSH 0.9% 10 ML SYRINGE IVP PRN (08:33)
[2021-07-03] MEDS ORDERED: METOCLOPRAMIDE 10 MG TABLET PO PRN (08:33)
[2021-07-03] MEDS ORDERED: LIDOCAINE-MPF 1% 30 ML VIAL ID PRN (08:33)
[2021-07-03] MEDS ORDERED: CARBOPROST TROMETHAMINE 250 MCG/ML AMP IM PRN (08:33)
[2021-07-03] MEDS ORDERED: METHYLERGONOVINE 0.2 MG/ML VIAL IM PRN (08:33)
--- NOTE | 2021-07-03 08:50 | HISTORY & PHYSICAL EXAMINATION ---
Admit History - Visit Reason Visit Reason: Other (IOL- unknown GDM status) - : 6 Parity: 5 Premature: 0 Ectopic: 0 : 0 Care: positive: Other (WHWC- adequate although infrequent) Risk/History: positive: None Complications This : positive: Gestational diabetes (unknown), Other (Grand Multip) Smoking Status: Never smoker - Mother's Labs Mother's Blood Type: positive: O Mother's RH: positive: Positive GBS: positive: Group B Step Negative Rubella Status: positive: Immune - Other Maternal History Other Maternal History: -31yo at 39.1wks gestation who presents to Labor and Delivery for pre- induction cervical ripening for Unknown GDM status -Reports movement -Denies ctx/VB/LOF - care with W which has been adequate - Complications PROBLEMS: 1. New diagnosis Rheumatoid Arthritis- per pt ASA 81mg daily RA consult re-ordered 2. Grand Multip 3. BMI 33.21 4. Suspected IUGR- MFM consult initiated - Posterior placenta, no previa. Size c/w dating with EFW 33%tile. TA long and closed. Recommend to continue with routine care. 5.Dep/Anx- severe. Misses several appointments due to reported inability to leave the house. 1hrGTT not completed. Move forward with IOL at 39.1wks (07/03/21 at 0700) for unknown GDM. -Dating Criteria Initial ultrasound c/w LMP dating for MARCIAL 07/09/2021 by LMP. -OB Hx *G1: 2009. . 41wks. Female *G2: 2010. . 40.5wks. Male *G3: 2012. . 39.6wks. Female *G4: 2017. . 40.3wks. Male *G5: 2019. . 40.0wks.Male *G6: Current -Medications * vitamin-daily *ASA 81mg daily *Zoloft 100mg daily -Allergies *NKDA -Medical History *Anxiety *Chronic Back Pain -Surgical History *None -Family History *Father- Bipolar *PGM- Dementia -Social History *History of light cigarette smoking- none since - Labs, Immunizations, and Findings *Initial ultrasound c/w LMP dating for MARCIAL 07/09/2021 by LMP. O pos/Rubella - could not find in panel- reordered with 28wk labs Gentic testing: declines FAS: WNL with the exception of size less than dates. EFW 4.5%tile and cannot exclude IUGR - MFM consult initiated. KATHRINE WNL. 3VC Glucola- ordered- patient declined. Flu: n/a TDAP- 04/17/2021 GBS & GC/CT at 36.4- negative HSV: denies self and partner Breast pump Rx 04/17/2021 MOD: . Grand Multip. "wait and see". Girl- Lashell Ivy. pp contraception: wants vasectomy PAP: -wnl -SVE deferred. Yesterday in triage was 1cm/40% -Vertex by BSUS -EFW by scotty's- 7.5#, Left Occiput Transverse - Physical Exam: Normocephalic, atraumatic Heart RRR w/o murmur Lungs clear and equal bilaterally Abdomen gravid, soft, nontender Edema- none Psych- wnl -FHTs per flowsheet -Assessment *31yo at 39.1wks gestation present for IOL r/t unknown GDM *Requires cervical ripening * Heart Tones- Category I -Plan *Admit to L&D due to history of rapid inductions *Cervical ripening with Misoprostol *Monitoring- Continuous *Comfort measures available- position changes, whirlpool tub, fentanyl, and epidural per maternal preference *Diet/Activity- per maternal preference *Anticipate Meds/Allgy - Home Medications Home Medications: Ambulatory Orders Medication Instructions Recorded Confirmed Ibuprofen [Motrin] 600 mg PO TID PRN #15 tab 09/23/19 Ondansetron Odt [Zofran] 4 mg TL Q6H PRN #15 tablet 09/23/19 - Allergies Allergies/Adverse Reactions: Allergies Allergy/AdvReac Type Severity Reaction Status Date / Time No Known Drug Allergies Allergy Verified 09/23/19 08:31 Review of Systems - All Other Systems All Other Systems: reports: Reviewed and negative Physical - Abdominal Exam Contraction Frequency (min/apart): intermittent Contraction Intensity: positive: Mild Uterine Resting Tone: positive: Soft - Monitoring Heart Rate Baseline: 140 Strip Review: positive: Category I (moderate variability, accels 15x15, no decels) - Presentation Presentation: positive: Vertex (by BSUS) - Vaginal Exam Membranes: positive: Membranes intact Plan for Labor - Plan For Labor I expect patient to be DC'd or transferred within 96 hours.: Yes
[2021-07-03] MEDS: miSOPROStoL 100 MCG TABLET BC SCH ×4 (09:24→22:46)
[2021-07-03] MEDS: SODIUM CHLORIDE FLUSH 0.9% 10 ML SYRINGE IVP SCH ×2 (09:26→16:09)
[2021-07-03 10:14] LABS: BASOPHILS # (AUTO) 0.1 10^3/uL (0.0-0.1); BASOPHILS % (AUTO) 0.5 %; EOSINOPHILS # (AUTO) 0.2 10^3/uL (0.0-0.7); EOSINOPHILS % (AUTO) 1.6 %; HCT - HEMATOCRIT 30.8 % (37.0-47.0); HGB - HEMOGLOBIN 9.2 g/dL (12.0-16.0); LYMPHOCYTES # (AUTO) 1.6 10^3/uL (1.5-3.5); LYMPHOCYTES % (AUTO) 14.3 %; MEAN CORPUSCULAR HEMOGLOBIN 23.4 pg (27.0-31.0); MEAN CORPUSCULAR HGB CONC 29.9 g/dL (32.0-36.0); MEAN CORPUSCULAR VOLUME 78.2 fL (81.0-99.0); MEAN PLATELET VOLUME 8.6 fL (7.9-10.8); MONOCYTES # (AUTO) 0.7 10^3/uL (0.0-1.0); MONOCYTES % (AUTO) 6.4 %; NEUTROPHILS # (AUTO) 8.4 10^3/uL (1.5-6.6); NEUTROPHILS % (AUTO) 76.1 %; NRBC ABSOLUTE COUNT (AUTO) 0.02 x10^3/uL; NUCLEATED RED BLOOD CELLS AUTO 0.2 /100WBC; PLT - PLATELET COUNT 349 10^3/uL (130-450); RED BLOOD COUNT 3.94 10^6/uL (4.20-5.40); RED CELL DISTRIBUTION WIDTH 16.3 % (12.0-15.0)
[2021-07-03] MEDS: LACTATED RINGERS 1,000 ML IV SCH (13:44)
--- NOTE | 2021-07-03 17:31 | PROVIDER PROGRESS NOTE ---
Labor Progress Note - Uterine Monitoring Uterine Monitoring Mode: positive: External toco Contraction Frequency (min/apart): 2-4 Contraction Intensity: positive: Mild Uterine Resting Tone: positive: Soft - Monitoring Monitor Mode: positive: External ultrasound Heart Rate Baseline: 130 Heart Rate Variability: positive: Moderate (6-25 bmp) Accelerations: positive: Present, 15x15 Decelerations: positive: None Strip Review: positive: Category I - Labor Progress Note Labor Progress Note/Additional Text: S: Ania is sitting up in bed with FOB supportive at bedside. They are jovial and she reports ctx pain at a 2.5/10. O: SVE- deferred Miso x2 @ 25mcg, last dose at 1330 A: 31yo at 39.1wks present for IOL for unknown GDM Not yet in active labor, so SVE deferred Cat I FHT Uterine ctx- not yet adequate Blood sugars wnl P: Increase miso dose to 50mcg q4h BC Continuous monitoring Anticipate Comfort measures- per patient May eat and drink to pt preference
[2021-07-03] MEDS ORDERED: SERTRALINE 50 MG TABLET PO SCH (22:00)
[2021-07-04] MEDS: LACTATED RINGERS 1,000 ML IV SCH ×2 (01:00→02:47)
[2021-07-04] MEDS ORDERED: ROPIVACAINE 0.2% 200 MG/100 ML BAG EP ONE (01:21)
[2021-07-04] MEDS ORDERED: ROPIVACAINE 0.2% 200 MG/100 ML BAG EP PRN (01:53)
[2021-07-04] MEDS ORDERED: NALBUPHINE 10 MG/ML AMP IVP PRN (01:53)
[2021-07-04] MEDS ORDERED: diphenhydrAMINE INJ 50 MG/ML VIAL IVP PRN (01:53)
[2021-07-04] MEDS ORDERED: NALOXONE 0.4 MG/ML VIAL IVP PRN (01:53)
[2021-07-04] MEDS ORDERED: ONDANSETRON 4 MG/2 ML VIAL IVP PRN (01:53)
--- NOTE | 2021-07-04 01:57 | ANESTHESIA ---
Pre-Anesthesia VS, & Labs - Diagnosis labor - Procedure epidural Vital Signs: Temp Pulse Resp BP Pulse Ox 36.7 C 07/03/21 08:41 Height: 5 ft 4 in Weight (kg): 96.162 kg Body Mass Index: 36.3 BMI Classification: Obese - NPO Other (clears) - Is Patient ?: Yes - Lab Results Current Lab Results: Laboratory Tests 07/04/21 00:21: POC Whole Bld Glucose 87 07/03/21 17:56: POC Whole Bld Glucose 115 H 07/03/21 12:51: POC Whole Bld Glucose 122 H 07/03/21 10:02: WBC 11.0 H, RBC 3.94 L, Hgb 9.2 L, Hct 30.8 L, MCV 78.2 L, MCH 23.4 L, MCHC 29.9 L, RDW 16.3 H, Plt Count 349, MPV 8.6, Neut # (Auto) 8.4 H, Lymph # (Auto) 1.6, [place] # (Auto) 0.7, Eos # (Auto) 0.2, Baso # (Auto) 0.1, Absolute Nucleated RBC 0.02, Nucleated RBC % 0.2 07/03/21 09:10: Blood Type O POSITIVE, Antibody Screen NEGATIVE 07/03/21 09:08: POC Whole Bld Glucose 93 Fish Bones: 07/03/21 10:02 Home Medications and Allergies Active Medications Acetaminophen (Acetaminophen 325 Mg Tablet) 650 mg PO Q6H PRN PRN Reason: Pain or Fever Carboprost Tromethamine (Carboprost Tromethamine 250 Mcg/Ml Amp) 250 mcg IM Q15M PRN PRN Reason: Step 4: Hemorrhage protocol Stop: 07/08/21 08:34 Fentanyl (Fentanyl 100 Mcg/2 Ml Vial) 50 mcg IVP Q1H PRN PRN Reason: PAIN Oxytocin/Sodium Chloride (Pitocin/Sodium Chloride) 500 mls @ 999 mls/hr IV PRN PRN; Protocol PRN Reason: POST- HEMORR PREVENTION Stop: 07/08/21 08:34 Tranexamic Acid (Tranexamic 1,000 Mg/100ml-Nacl) 1,000 mg in 100 mls @ 600 mls/hr IV .ONCE PRN PRN Reason: EBL >1200mL and within 3hr Stop: 07/08/21 08:34 Oxytocin/Sodium Chloride (Pitocin/Sodium Chloride) 500 mls @ 999 mls/hr IV PRN PRN; Protocol PRN Reason: POST- HEMORR PREVENTION Lactated Ringer's (Lr) 1,000 mls @ 100 mls/hr IV .Q10H [facility] Last Admin: 07/03/21 13:44 Dose: Not Given Documented by: Lidocaine HCl (Lidocaine-Mpf 1% 30 Ml Vial) 30 ml ID .ONCE PRN PRN Reason: PERINEAL REPAIR Stop: 07/08/21 08:34 Methylergonovine Maleate (Methylergonovine 0.2 Mg/Ml Vial) 0.2 mg IM .ONCE PRN PRN Reason: Step 2: Hemorrhage protocol Stop: 07/08/21 08:34 Metoclopramide HCl (Metoclopramide 10 Mg Tablet) 10 mg PO Q6H PRN PRN Reason: Nausea / Vomiting Metoclopramide HCl (Metoclopramide 10 Mg/2 Ml Vial) 10 mg IVP Q6H PRN PRN Reason: Nausea / Vomiting Misoprostol (Misoprostol 200 Mcg Tablet) 800 mcg BC .ONCE PRN PRN Reason: Step 3: Hemorrhage protocol Stop: 07/08/21 08:34 Misoprostol (Misoprostol 100 Mcg Tablet) 50 mcg BC Q4HR [facility] Last Admin: 07/03/21 22:46 Dose: 50 mcg Documented by: Ondansetron HCl (Ondansetron 4 Mg/2 Ml Vial) 4 mg IVP Q4HR PRN PRN Reason: Nausea / Vomiting Ondansetron HCl (Ondansetron Odt 4 Mg Tablet) 4 mg TL Q4HR PRN PRN Reason: Nausea / Vomiting Oxytocin (Oxytocin 10 Unit/Ml Vial) 10 unit IM .ONCE PRN PRN Reason: Step one: If no IV access Stop: 07/08/21 08:34 Sertraline HCl (Sertraline 50 Mg Tablet) 100 mg PO DAILY [facility] Last Admin: 07/03/21 22:01 Dose: 100 mg Documented by: Sodium Chloride (Sodium Chloride Flush 0.9% 10 Ml Syringe) 10 ml IVP 0100,09 00,1700 [facility] Last Admin: 07/03/21 16:09 Dose: 10 ml Documented by: Sodium Chloride (Sodium Chloride Flush 0.9% 10 Ml Syringe) 10 ml IVP PRN PRN PRN Reason: NEEDED PER PROVIDER ORDERS Allergies/Adverse Reactions: Allergies Allergy/AdvReac Type Severity Reaction Status Date / Time No Known Drug Allergies Allergy Verified 09/23/19 08:31 Anes History & Medical History - Anesthetic History Anesthesia Complications: reports: No previous complications - Medical History Cardiovascular: reports: None Pulmonary: reports: None Neuro: reports: Migraines Smoking Status: Never smoker History of Cancer?: No - Obstetrical History : 6 Parity: 5 Events: reports: None Complications: reports: Gestational diabetes (unknown), Other ([place]) Exam General: Alert Dental: WNL Mouth Opening: Greater than 4 Fingerbreadths Mallampati classification: II Respiratory: Lungs clear Cardiovascular: Regular rate Plan Anesthesia Type: Epidural Consent for Procedure(s) Verified and Reviewed: Yes Code Status: Attempt Resuscitation ASA classification: 2-Mild systemic disease Is this case an emergency?: No
[2021-07-04] MEDS: ePHEDrine 50 MG/ML VIAL IVP PRN ×3 (02:20→02:45)
[2021-07-04] MEDS ORDERED: TRANEXAMIC ACID 1,000 MG in SODIUM CHLORIDE 0.9% 100ML 100 ML IV STA (03:13)
--- NOTE | 2021-07-04 03:17 | PROVIDER PROGRESS NOTE ---
Labor Progress Note - Uterine Monitoring Uterine Monitoring Mode: positive: External toco Contraction Frequency (min/apart): 3-4 Contraction Intensity: positive: Moderate Uterine Resting Tone: positive: Soft - Monitoring Monitor Mode: positive: External ultrasound Heart Rate Baseline: 150 Heart Rate Variability: positive: Moderate (6-25 bmp) Accelerations: positive: Present, 15x15 Decelerations: positive: Late, Recurrent (>50% x20 min) Strip Review: positive: Category II - Vaginal Exam Dilation (in cm): 8 Effacement (%): 100 Station: -2 Cervical Position: Anterior - Labor Progress Note Labor Progress Note/Additional Text: S- Pt resting in bed, reports good pain relief with epidural. Pt experiencing frequent bouts of emesis. FOB supportive at bedside. Denies constant abd pain, or pain with palpation of abdomen. Alert and oriented. O- Status post misoprostol dose #4 at 2245 0110- possible SROM with bloody show, CNM to bedside 0150- large aprox 100 mL clot x2, backup MD notified to pt status 0215- txa initiated, fluid bolus x 1L, frequent position changes. Consistant low BP noted following epidural placement, pt symptomatic with pallor, and N/V. Anesthesia notified. Ephedrine given x5 0245- Back up MD on unit and updated to cat 2 strip, and current mild bloody show SVE 8/100/-2, possible forebag noted A- 31 y/o at 39.2 weeks in active labor Monitoring for possible placental abruption vs bloody show Adequate labor progress FHT cat 2- MD aware, peds present P- continous monitoring, continue with intrauterine resuscitative measures 2 units type and cross match on hold, hem meds at bedside Anticipate RN to place bravo catheter now
[2021-07-04] MEDS ORDERED: HYDROCORTISONE 1% CREAM 28 GM TUBE PR PRN (04:44)
[2021-07-04] MEDS ORDERED: WITCH HAZEL/GLYCERIN 1 PAD TOP PRN (04:44)
--- NOTE | 2021-07-04 05:16 | DELIVERY NOTE ---
Delivery Note - Labor Labor: positive: Other (Induced by misoprostol) - Delivery Method Infant Delivery Method: positive: Spontaneous vaginal delivery - Presentation Presentation: positive: OA - occiput anterior - Nuchal Cord Nuchal Cord: positive: None - Anesthetic Anesthetic Type: - Amniotic Fluid Description Amniotic Fluid Description: positive: Clear - Laceration Laceration: positive: None - Delivery Outcome Delivery Outcome: positive: Livebirth - [place] : positive: Stimulated, [place] used, Warmer used (Peds present for resuscitation) [place] sex: positive: Female - Cord Cord: positive: 3 vessels - Placenta Placenta: positive: Intact, Spontaneous - Estimated Blood Loss Estimated Blood Loss (in cc): 150 - Post Delivery Events Post Delivery Events: positive: No post delivery events - Delivery Comments (Free Text/Narrative) Delivery Comments (Free Text/Narrative): Note: Labor: This 31 year old, @39.1wks gestation by 12.4 week Ultrasound, confirmed by LMP, presented on 07/03/2021 at 0800 for IOL r/t Unknown GDM status. Cervical exam was deferred as she was not francisco javier. Confirmed vertex with BSUS. FHR pattern demonstrated 140 baseline in a Category I pattern. Misoprostol x4 doses given for cervical ripening. Normal labor course. Epidural placed upon maternal request. Significant amounts of vaginal bleeding noted, possible abruption of placenta. Cat II strip noted with recurrent late decels. MD backup and Peds present for delivery. Possible SROM at 0110, however significant forebag was ruptured with attempted FSE placement at 0410 with a moderate amount of clear fluid. Pt was found to have an anterior lip and due to tracing was coached to push. Maternal pushing efforts effective and she progressed to complete at 0411 in hands and knees position. : Normal of a 3270gm female , named Sonia, on 07/04/2021 @ 0419. Nuchal not present. The was placed between maternal knees, stimulated, and dried. Umbilical cord was doubly clamped by CNM and cut by FOB and baby was transferred to warmer for resuscitation with Peds present. Apgars 5 at one minute, 6 at five minutes, and 8 at ten minutes. Pitocin administered via IV for hemostasis. Fundal massage and gentle cord traction applied for active third stage management. Cord blood was obtained. Placenta delivered spontaneously and intact at 0420, sent to pathology. Three vessel cord. EBL 150mL. Fourth Stage: Uterine fundus firm and without excessive bleeding. The perineum, and vagina were inspected and found to be intact. Family bonding well. Both mother and baby are in stable condition.
[2021-07-04] MEDS: ACETAMINOPHEN 325 MG TABLET PO PRN ×3 (06:20→18:16)
[2021-07-04] MEDS: IBUPROFEN 600 MG TABLET PO SCH ×3 (06:20→18:16)
[2021-07-04 10:19] LABS: BASOPHILS # (AUTO) 0.1 10^3/uL (0.0-0.1); BASOPHILS % (AUTO) 0.4 %; EOSINOPHILS # (AUTO) 0.1 10^3/uL (0.0-0.7); EOSINOPHILS % (AUTO) 0.4 %; HCT - HEMATOCRIT 28.5 % (37.0-47.0); HGB - HEMOGLOBIN 8.7 g/dL (12.0-16.0); LYMPHOCYTES # (AUTO) 1.5 10^3/uL (1.5-3.5); LYMPHOCYTES % (AUTO) 8.8 %; MEAN CORPUSCULAR HGB CONC 30.5 g/dL (32.0-36.0); MEAN CORPUSCULAR VOLUME 78.5 fL (81.0-99.0); MEAN PLATELET VOLUME 8.6 fL (7.9-10.8); NEUTROPHILS # (AUTO) 14.3 10^3/uL (1.5-6.6); NEUTROPHILS % (AUTO) 83.8 %; PLT - PLATELET COUNT 341 10^3/uL (130-450); RED BLOOD COUNT 3.63 10^6/uL (4.20-5.40); RED CELL DISTRIBUTION WIDTH 16.5 % (12.0-15.0); WHITE BLOOD COUNT 17.1 x10^3/uL (4.8-10.8)
[2021-07-04] MEDS: DOCUSATE SODIUM 100 MG CAPSULE PO PRN ×2 (12:10→22:27)
[2021-07-04] MEDS ORDERED: SERTRALINE 50 MG TABLET PO SCH (16:01)
--- NOTE | 2021-07-04 19:37 | PROVIDER PROGRESS NOTE ---
Subjective - Prog Note Date Prog Note Date: 07/04/21 Prog Note Time: 17:30 - Subjective Pt reports feeling: Improved Subjective: S: Ania is resting in bed with baby Sonia sleeping in her lap. Her and FOB Shane recounted the story of their fondly and talked through some of the more intense portions, the possible placental separation, and watching baby's resuscitation. They both express relief and gratitude for the outcome and are bonding well with baby. Ania reports her pain is well controlled with tylenol and ibuprofen. She also reports Sonia is "like a champ." She reports her uterus as being very firm and her bleeding as "barely anything." O: Hct 28.5- denies dizziness, fatigue. Skin is pink and warm. Fundus firm Lochia rubra-light A: 31yo s/p with possible placenta abruption this morning, 07/04/2021 at 0419 Day 1 Normal recovery P: Continue with routine care Evaluate for discharge home tomorrow Objective - Vital Signs/Intake & Output Vital Signs: Vital Signs x48h Temp Pulse Resp BP Pulse Ox 07/04/21 16:34 36.9 C 67 18 102/64 07/04/21 12:04 36.7 C 73 14 104/68 98 Intake & Output: Intake & Output 07/01/21 07/02/21 07/03/21 07/04/21 23:59 23:59 23:59 23:59 Intake Total 661 2100 Output Total 1800 Balance 661 300 - Lab Results Fish Bones: 07/04/21 10:14 Other Labs: Lab Results x24hrs 07/04/21 07/04/21 07/03/21 Range/Units 10:14 00:21 10:00 WBC 17.1 H (4.8-10.8) x10^3/uL RBC 3.63 L (4.20-5.40) 10^6/uL Hgb 8.7 L (12.0-16.0) g/dL Hct 28.5 L (37.0-47.0) % MCV 78.5 L (81.0-99.0) fL MCH 24.0 L (27.0-31.0) pg MCHC 30.5 L (32.0-36.0) g/dL RDW 16.5 H (12.0-15.0) % Plt Count 341 (130-450) 10^3/uL MPV 8.6 (7.9-10.8) fL Neut # (Auto) 14.3 H (1.5-6.6) 10^3/uL Lymph # (Auto) 1.5 (1.5-3.5) 10^3/uL Green # (Auto) 1.0 (0.0-1.0) 10^3/uL Eos # (Auto) 0.1 (0.0-0.7) 10^3/uL Baso # (Auto) 0.1 (0.0-0.1) 10^3/uL Absolute Nucleated RBC 0.00 x10^3/uL Nucleated RBC % 0.0 /100WBC POC Whole Bld Glucose 87 (70 - 100) mg/dL Coronavirus (PCR) NEGATIVE Blood Type Antibody Screen Crossmatch IS Only 07/03/21 Range/Units 09:10 WBC (4.8-10.8) x10^3/uL RBC (4.20-5.40) 10^6/uL Hgb (12.0-16.0) g/dL Hct (37.0-47.0) % MCV (81.0-99.0) fL MCH (27.0-31.0) pg MCHC (32.0-36.0) g/dL RDW (12.0-15.0) % Plt Count (130-450) 10^3/uL MPV (7.9-10.8) fL Neut # (Auto) (1.5-6.6) 10^3/uL Lymph # (Auto) (1.5-3.5) 10^3/uL Green # (Auto) (0.0-1.0) 10^3/uL Eos # (Auto) (0.0-0.7) 10^3/uL Baso # (Auto) (0.0-0.1) 10^3/uL Absolute Nucleated RBC x10^3/uL Nucleated RBC % /100WBC POC Whole Bld Glucose (70 - 100) mg/dL Coronavirus (PCR) Blood Type O POSITIVE Antibody Screen NEGATIVE Crossmatch IS Only See Detail
[2021-07-05] MEDS: ACETAMINOPHEN 325 MG TABLET PO PRN ×2 (00:14→06:50)
[2021-07-05] MEDS: IBUPROFEN 600 MG TABLET PO SCH ×2 (00:14→06:50)
--- NOTE | 2021-07-05 08:20 | PROVIDER PROGRESS NOTE ---
Subjective - Prog Note Date Prog Note Date: 07/05/21 Prog Note Time: 06:18 - Subjective Pt reports feeling: Improved Subjective: S: yolette is resting in bed and holding baby Sonia. JAZLYN is sleeping at bedside. She reports her night as uneventful and her pain as well controlled with PO pain meds. O: Fundus firm Lochia rubra-light A: 31yo s/p on pp day 2 Normal recovery P: Continue with routine care Discharge home today Objective - Vital Signs/Intake & Output Intake & Output: Intake & Output 07/02/21 07/03/21 07/04/21 07/05/21 23:59 23:59 23:59 23:59 Intake Total 661 2100 Output Total 1800 Balance 661 300 - Lab Results Fish Bones: 07/04/21 10:14 Other Labs: Lab Results x24hrs 07/04/21 07/03/21 07/03/21 Range/Units 10:14 10:00 09:10 WBC 17.1 H (4.8-10.8) x10^3/uL RBC 3.63 L (4.20-5.40) 10^6/uL Hgb 8.7 L (12.0-16.0) g/dL Hct 28.5 L (37.0-47.0) % MCV 78.5 L (81.0-99.0) fL MCH 24.0 L (27.0-31.0) pg MCHC 30.5 L (32.0-36.0) g/dL RDW 16.5 H (12.0-15.0) % Plt Count 341 (130-450) 10^3/uL MPV 8.6 (7.9-10.8) fL Neut # (Auto) 14.3 H (1.5-6.6) 10^3/uL Lymph # (Auto) 1.5 (1.5-3.5) 10^3/uL [place] # (Auto) 1.0 (0.0-1.0) 10^3/uL Eos # (Auto) 0.1 (0.0-0.7) 10^3/uL Baso # (Auto) 0.1 (0.0-0.1) 10^3/uL Absolute Nucleated RBC 0.00 x10^3/uL Nucleated RBC % 0.0 /100WBC Coronavirus (PCR) NEGATIVE Crossmatch IS Only See Detail
--- NOTE | 2021-07-05 08:20 | DISCHARGE SUMMARY ---
Discharge Summary Admit Date: 07/03/21 Discharge Date: 07/05/21 Condition at Discharge: Good Discharge Disposition: 01 Home, Self Care - HPI History of Present Illness: Admit Date 07/03/2021 Discharge Date 07/05/2021 Diagnosis on Admission: 1. A 31yo at 39.1 week intrauterine 2. Grand Multip 3. Unknown GDM status 4. BMI >30 Diagnosis on Discharge 1. A 31yo s/p spontaneous vaginal delivery on 07/04/2021 2. Normal recovery Brief History: She is a patient at [facility] who presented on 07/03/2021 for induction of labor r/t unknown GDM status. The patient was not francisco javier, so cervical exam was deferred. BSUS to confirm vertex. She was ripened with misoprostol x4 doses and spontaneously delivered a viable female named Sonia. A placental abruption was suspected. Apgars were 5 and 6- and 1 and 5 minutes respectively, and 8 at ten minutes of life. EBL 150mL after delivery with approx. 500mL loss during labor. The patient had an intact perineum. She has been doing well in her course. She is ambulating and tolerating a regular diet. She is urinating without difficulty and her lochia is normal. Her pain is well controlled with oral medications. She will be discharged home today on day #2 without need for prescriptions. She intends to follow up with Midwifery at [facility] in 1, and 6 weeks for routine visit. She has been given precautions to call if she has any worsening fevers, chills, abdominal pain, increased bleeding or foul smelling vaginal lochia. - ALLERGIES Allergies/Adverse Reactions: Allergies Allergy/AdvReac Type Severity Reaction Status Date / Time No Known Drug Allergies Allergy Verified 09/23/19 08:31 - MEDICATIONS Home Medications: Ambulatory Orders Medication Instructions Recorded Confirmed Ibuprofen [Motrin] 600 mg PO TID PRN #15 tab 09/23/19 Ondansetron Odt [Zofran] 4 mg TL Q6H PRN #15 tablet 09/23/19 - LABS Result Diagrams: 07/04/21 10:14
--- NOTE | 2021-07-05 08:22 | Discharge Plan ---
Discharge Plan Problem Reviewed?: Yes Disposition: Home, Self Care Condition: Good Additional Instructions or Follow Up instructions: Follow up with Midwifery at 1 and 6 weeks No Smoking: If you smoke, Please STOP! Call for help. Follow-up with: Zonia Calvillo CNM, ARNP [Provider Admit Priv/Credential] -
[2021-07-05] MEDS: DOCUSATE SODIUM 100 MG CAPSULE PO PRN (08:52)
[2021-07-05 09:52] VITALS: BP 104/67
== END 2021-07-05 12:05 | disposition home or self-care (01) | DRG 805 ==
LOC: WFO 07:29 → FBP 07:34 → WFO 08:32 → FBP 08:33
PROVIDERS: ADMIT Advanced Practice Midwife; ATTEND Advanced Practice Midwife
PROC: 3E033VJ Introduction of Other Hormone into Peripheral Vein, Percutaneous Approach (ICD-10-PCS; principal; 2021-07-03)
PROC: 10E0XZZ Delivery of Products of Conception, External Approach (ICD-10-PCS; 2021-07-04)
DX: O24.429 Gestational diabetes mellitus in childbirth, unspecified control (principal); O45.93 Premature separation of placenta, unspecified, third trimester; Z37.0 Single live birth; O99.344 Other mental disorders complicating childbirth; F32.9 Major depressive disorder, single episode, unspecified; F41.9 Anxiety disorder, unspecified; Z3A.39 39 weeks gestation of pregnancy; O99.892 Other specified diseases and conditions complicating childbirth; M06.9 Rheumatoid arthritis, unspecified; Z87.891 Personal history of nicotine dependence
CPT/HCPCS: 36415; 85025; 86850; 86900; 86901; 86920; 87635; A9270; J7120